=== PATIENT | female | born 1995 | race Caucasian/White ===

== ENCOUNTER 2020-10-10 08:31 | Outpatient (CLI) | payer BC | END 2020-10-10 23:59 | disposition home or self-care (01) | LOC: RAD 08:31 | PROVIDERS: ATTEND Family Medicine | DX: R42 Dizziness and giddiness (principal); R44.8 Other symptoms and signs involving general sensations and perceptions; R53.83 Other fatigue; R41.89 Other symptoms and signs involving cognitive functions and awareness | CPT/HCPCS: 95819 ==

== ENCOUNTER 2022-10-23 07:40 | Outpatient (CLI) | payer BC ==
[2022-10-23] VITALS (18 sets, daily range): BP systolic 107–129; BP diastolic 59–99
== END 2022-10-23 23:59 | disposition home or self-care (01) ==
LOC: CARD DIAG 07:40
PROVIDERS: ATTEND Internal Medicine Interventional Cardiology
DX: R42 Dizziness and giddiness (principal); R00.0 Tachycardia, unspecified
CPT/HCPCS: 93660